=== PATIENT | male | born 1965 | race Caucasian/White ===

== ENCOUNTER → 2017-09-16 | Outpatient (CLI) | payer OTHER ==
--- NOTE | 2017-09-16 15:05 | KCIC ---
EXAM: Thyroid sonogram. HISTORY: Thyroid nodule. TECHNIQUE: Sonographic imaging of the thyroid was performed. COMPARISON: None. FINDINGS: The right thyroid lobe measures 5.0 x 1.4 x 2.4 cm. The left thyroid lobe measures 4.6 x 1.4 x 1.9 cm. The isthmus measures 3.3 mm in thickness. The thyroid parenchyma is diffusely heterogeneous. There is a predominantly solid isoechoic isoechoic nodule with small cystic components within the right thyroid lobe measuring 9 x 8 x 6 mm. No additional thyroid lesion is seen. IMPRESSION: 1. 8 mm left thyroid nodule with small cystic components. 2. Diffusely heterogeneous thyroid. This can be seen as a sequela of prior thyroiditis. Electronically signed by: Beba Jimenez MD (09/16/2017 3:01 PM) [place] [id number]
== END | disposition home or self-care (01) ==
LOC: KCIC US 13:52
PROVIDERS: ATTEND Otolaryngology
DX: E04.1 Nontoxic single thyroid nodule (principal)
CPT/HCPCS: 76536